=== PATIENT | female | born 1970 | race Caucasian/White ===

== ENCOUNTER 2016-04-26 08:43 | Emergency (ER) | payer OTHER ==
[~2016-04-26] VITALS: Ht 152.4 cm; Wt 78.0 kg
[~2016-04-26 08:43] MED LIST: ASPI-664 PO; ATEN50TA PO; HYDR12.58 PO; IBUP800T25 PO; LOSA50TA6 PO; SYN112 PO
[2016-04-26 08:50] VITALS: Ht 152.4 cm; Wt 78.0 kg
[2016-04-26] MEDS ORDERED: ONDANSETRON 4 MG INJ IV STA (10:12)
[2016-04-26] MEDS ORDERED: SOD CHLORIDE 0.9% 1,000 ML IV STA (10:12)
[2016-04-26] MEDS ORDERED: LIDOCAINE/MYLANTA 40 ML BTL PO STA (10:12)
[2016-04-26] MEDS ORDERED: morphine 4 MG/ML VIAL IV STA (10:12)
--- NOTE | 2016-04-26 10:31 | ERD ---
ER Documentation Chief Complaint Date/Time DATE: 04/26/16 TIME: 10:23 Chief Complaint pt bib self with c/o ap x 2 wks, and nausea, lost weight HPI This is a 45-year-old female past medical history of hypertension and hypothyroidism and appendectomy in the past presenting to the emergency department complaining of epigastric for the past 2 weeks. Patient states that the pain is worse with food. Patient admits nausea but denies any vomiting. She admits to having weight loss, she denies any constipation or diarrhea. She states her last bowel movement was yesterday. Patient has not taken any medications for this. She denies any fever ROS All systems reviewed and are negative except as per history of present illness. Medications Home Meds Active Scripts Omeprazole* (Omeprazole*) 20 Mg Capsule., 20 MG PO DAILY, #14 Prov:PRAVIN NICOLE PA-C 04/26/16 Famotidine* (Pepcid*) 20 Mg Tablet, 20 MG PO QHS for 7 Days, TAB Prov:PRAVIN NICOLE PA-C 04/26/16 Ondansetron (Ondansetron Odt) 4 Mg Tab.rapdis, 4 MG PO Q6H Y for NAUSEA AND/OR VOMITING, #14 TAB Prov:PRAVIN NICOLE PA-C 04/26/16 Ibuprofen* (Motrin*) 800 Mg Tab, 800 MG PO Q8, #30 TAB Prov:MORA FLORENCE DO 02/03/15 Reported Medications Aspirin* (Aspirin* EC) 81 Mg Tablet.dr, 81 MG PO DAILY, TAB 02/03/15 Hydrochlorothiazide* (Hydrochlorothiazide*) 12.5 Mg Tablet, 12.5 MG PO DAILY, TAB 02/03/15 Losartan Potassium* (Losartan Potassium*) 50 Mg Tablet, 50 MG PO DAILY, TAB 02/03/15 Atenolol* (Atenolol*) 50 Mg Tablet, 50 MG PO DAILY, TAB 02/03/15 Levothyroxine Sodium* (Levothyroxine Sodium*) 112 Mcg Tablet, 112 MCG PO DAILY, TAB 02/03/15 Allergies Allergies: Coded Allergies: No Known Allergy (Unverified , 02/03/15) PMhx/Soc History of Surgery: Yes (APPENDECTOMY; TONSILECTOMY; BLADDER.) Hx Neurological Disorder: No Hx Respiratory Disorders: No Hx Cardiac Disorders: No (HTN) Hx Psychiatric Problems: No Hx Miscellaneous Medical Probl: No (HYPOTHYROID) Hx Alcohol Use: No Hx Substance Use: No Hx Tobacco Use: No Physical Exam Vitals Vital Signs Date Time Temp Pulse Resp B/P Pulse Ox O2 Delivery O2 Flow Rate FiO2 04/26/16 08:50 98.3 77 18 162/70 99 Physical Exam GENERAL: well-developed/well-nourished, in no apparent distress, non-toxic appearing HENT: NC/AT, moist mucous membranes EYES: Conjunctiva normal NECK: Supple, no lymphadenopathy PULM: CTA bilaterally, no rales, rhonchi, or wheezing heard CV: Normal S1S2, RRR, good capillary refill GI: Soft, non-distended, tender to palpation epigastric region Normal bowel sounds, no masses or organomegaly felt on exam No gross peritonitis, no bruits Negative Rovsing, negative Jones, negative McBurney's point, Negative CVAT BACK: No masses EXT: No clubbing, cyanosis, or edema NEURO: Alert and Orientated SKIN: Intact, normal turgor PSYCH: Normal mood and mentation Result Diagram: 04/26/16 1032 04/26/16 1032 Results 24 hrs Laboratory Tests Test 04/26/16 10:32 Alanine Aminotransferase (ALT/SGPT) 30IU/L Albumin 4.0g/dl Albumin/Globulin Ratio 1.21 Alkaline Phosphatase 95IU/L Anion Gap 18 Aspartate Amino Transf (AST/SGOT) 25IU/L Basophils # 0.110^3/ul Basophils % 0.8% Blood Urea Nitrogen 10mg/dl Calcium Level 9.0mg/dl Carbon Dioxide Level 25mmol/L Chloride Level 106mmol/L Creatinine 0.49mg/dl Direct Bilirubin 0.00mg/dl Eosinophils # 0.110^3/ul Eosinophils % 1.3% Globulin 3.30g/dl Glucose Level 103mg/dl Hematocrit 43.7% Hemoglobin 14.7g/dl Indirect Bilirubin 0.2mg/dl Lipase 73U/L Lymphocytes # 2.510^3/ul Lymphocytes % 32.7% Mean Corpuscular Hemoglobin 31.0pg Mean Corpuscular Hemoglobin Concent 33.6g/dl Mean Corpuscular Volume 92.2fl Mean Platelet Volume 11.0fl Monocytes # 0.610^3/ul Monocytes % 8.4% Neutrophils # 4.310^3/ul Neutrophils % 56.5% Nucleated Red Blood Cells # 0.010^3/ul Nucleated Red Blood Cells % 0.0/100WBC Platelet Count 94217^3/UL Potassium Level 3.7mmol/L Red Blood Count 4.7410^6/ul Red Cell Distribution Width 13.1% Sodium Level 145mmol/L Total Bilirubin 0.2mg/dl Total Protein 7.3g/dl Urine Bilirubin NEGATIVE Urine Clarity CLEAR Urine Color LT. YELLOW Urine Glucose NEGATIVE% Urine Hemoglobin NEGATIVE Urine Ketones NEGATIVE Urine Leukocyte Esterase NEGATIVE Urine Nitrite NEGATIVE Urine Specific [place] 1.010 Urine Total Protein NEGATIVE Urine Urobilinogen 0.2 E.U./dL Urine pH 7.0 White Blood Count 7.610^3/ul Current Medications Medications (Trade) Dose Ordered Sig/Blake Route PRN Reason Start Time Stop Time Status Last Admin Dose Admin Sodium Chloride (NS) 1,000 ml @ 1,000 mls/hr Q1H STAT IV 04/26/16 10:12 04/26/16 11:11 DC 04/26/16 11:04 Morphine Sulfate (morphine) 4 mg ONCE STAT IV 04/26/16 10:12 04/26/16 10:14 DC 04/26/16 11:05 Ondansetron HCl (Zofran Inj) 4 mg ONCE STAT IV 04/26/16 10:12 04/26/16 10:14 DC 04/26/16 11:04 Miscellaneous Medication (Gi Cocktail (2)) 40 ml ONCE STAT PO 04/26/16 10:12 04/26/16 10:14 DC 04/26/16 11:05 Procedures/MDM This is a 45-year-old female past medical history of hypertension and hypothyroidism and appendectomy in the past presenting to the emergency department complaining of epigastric pain, nausea which is worse with food for the past 2 weeks. This is likely GERD, other differentials include but not limited to pancreatitis, cholecystitis, cholelithiasis, obstruction, or other cardiopulmonary conditions. Patient seemingly stable, she appears well she is afebrile and she is speaking clearly. IV access was established. Patient was given Pepcid, morphine, Zofran and a GI cocktail. I have reassessed patient and she significantly felt better. Lab work was drawn. CBC did not show any evidence of leukocytosis or anemia. CMP did not show any evidence of renal, liver, or electrolyte abnormalities. Lipase was normal. UA did not show any evidence of hemoglobin or urinary tract infection. An ultrasound of the gallbladder was done and was unremarkable for gallstones. Patient is suitable to follow-up with her primary care physician for further evaluation and management. She understands and agrees with this plan Departure Diagnosis: Primary Impression: Epigastric pain Condition: Stable PRAVIN NICOLE PA-C Apr 26, 2016 10:31
[2016-04-26 10:49] LABS: ADD UMIC NO; URINE BILIRUBIN (Dip) NEGATIVE (NEGATIVE); URINE BLOOD (Dip) NEGATIVE (NEGATIVE); URINE COLOR LT. YELLOW (YELLOW); URINE GLUCOSE (Dip) NEGATIVE (NEGATIVE); URINE KETONES (Dip) NEGATIVE (NEGATIVE); URINE LEUKOCYTE ESTERASE (Dip) NEGATIVE (NEGATIVE); URINE NITRITE (Dip) NEGATIVE (NEGATIVE); URINE TOTAL PROTEIN (Dip) NEGATIVE (NEGATIVE); URINE UROBILINOGEN (Dip) 0.2 E.U./dL (0.1-1.0)
[2016-04-26 11:01] LABS: POTASSIUM 3.7 mmol/L (3.5-5.1)
[2016-04-26 11:03] LABS: ALBUMIN/GLOBULIN RATIO 1.21; BILIRUBIN,INDIRECT 0.2 mg/dl (0-1.1); BILIRUBIN,TOTAL 0.2 mg/dl (0.2-1.3); CREATININE 0.49 mg/dl (0.44-1.00); TOTAL PROTEIN 7.3 g/dl (6.1-8.1)
[2016-04-26 11:06] LABS: BASOPHILS % 0.8 % (0.0-2.0); EOSINOPHILS % 1.3 % (0.0-7.0); HEMATOCRIT 43.7 % (37.0-47.0); HEMOGLOBIN 14.7 g/dl (12.0-16.0); LYMPHOCYTES # 2.5 10^3/ul (0.8-2.9); LYMPHOCYTES % 32.7 % (15.0-51.0); MEAN CORPUSCULAR HGB CONC 33.6 g/dl (32.0-37.0); MEAN CORPUSCULAR VOLUME 92.2 fl (82.0-101.0); MONOCYTE # 0.6 10^3/ul (0.3-0.9); MONOCYTES % 8.4 % (0.0-11.0); NEUTROPHIL # 4.3 10^3/ul (1.6-7.5); NEUTROPHILS % 56.5 % (39.0-77.0); PLATELET COUNT 283 10^3/UL (140-440); RED BLOOD COUNT 4.74 10^6/ul (4.20-5.40); RED CELL DISTRIBUTION WIDTH 13.1 % (11.5-14.5); WHITE BLOOD COUNT 7.6 10^3/ul (4.8-10.8)
[2016-04-26 11:07] LABS: BASOPHIL # 0.1 10^3/ul (0.0-0.1); EOSINOPHILS # 0.1 10^3/ul (0.0-0.5)
--- NOTE | 2016-04-26 11:08 | RADRPT ---
PROCEDURE: US Abdomen Right Upper Quadrant. CLINICAL INDICATION: Cholelithiasis TECHNIQUE: Multiple real-time longitudinal and transverse images were acquired of the patient's [facility] upper quadrant abdomen utilizing a curved array transducer. COMPARISON: None FINDINGS: Liver: The liver is mildly enlarged with the sagittal diameter right lobe measuring 16.9 cm. No foc al lesion is evident. The hepatic and portal veins are patent and there is antegrade flow of the ma in portal vein. Gallbladder: Appears unremarkable and no stones are identified. There is no pericholecystic fluid. Bile ducts: There is no significant intra or extrahepatic bile duct dilatation. No choledocholiths a re seen within the visualized portions. The common bile duct measures 3.9 mm in cross diameter. Pancreas: Appears unremarkable with no mass or inflammation evident. Right adrenal : No mass is evident. Right kidney: Normal in echotexture andl in size. The right kidney measures 12.2 cm in length. No ma ss, pathological calcification, or hydronephrosis is evident. Peritoneum: There is no free intraperitoneal fluid IMPRESSION: 1. Normal appearing gallbladder without evidence of cholelithiasis. There is no bile duct dilatatio n and the pancreas appears unremarkable. 2. Mild hepatomegaly with no focal lesion. 3. Normal-appearing right kidney. Physician Enrike Date Time Electronically viewed and signed by Physician Enrike on 04/26/2016 11:07 /
[2016-04-26] MEDS ORDERED: FAMO-18 PO (11:17)
[2016-04-26] MEDS ORDERED: ONDA4TAB14 PO (11:17)
[2016-04-26] MEDS ORDERED: OMEP20CA16 PO (11:17)
[2016-04-26 11:57] VITALS: BP 132/68; PULSE 59; RESP 18; TEMP 98
== END 2016-04-26 12:50 | disposition home or self-care (01) ==
LOC: FTE 08:43
DX: R10.13 Epigastric pain (principal); I10 Essential (primary) hypertension; E03.9 Hypothyroidism, unspecified; R11.0 Nausea; Z79.82 Long term (current) use of aspirin
CPT/HCPCS: 76705; 80053; 81003; 83690; 85025; J2270; J2405; J7030; Z7610; 36415; 96374; 96375

== ENCOUNTER 2016-07-10 14:15 | Emergency (ER) | payer OTHER ==
[~2016-07-10] VITALS: Ht 160 cm; Wt 79.5 kg
[~2016-07-10 14:15] MED LIST changes: +FAMO-18 PO; +OMEP20CA16 PO; +ONDA4TAB14 PO
[2016-07-10 14:28] VITALS: Ht 160 cm; Wt 79.5 kg
--- NOTE | 2016-07-10 15:23 | ERD ---
ER Documentation Chief Complaint Date/Time DATE: 07/10/16 TIME: 15:19 Chief Complaint urinary frequency x 1 month HPI 46-year-old female complaining urinary frequency 1 month. Patient states that she has slight dysuria, and the urine has a bad odor. Denies fever or chills. Denies flank pain. Denies hematuria. Patient stated that she was told she has prediabetes, but does not have diabetes. She also has history of hypertension, taking losartan and hydrochlorothiazide in the morning, and atenolol at night. ROS All systems reviewed and are negative except as per history of present illness. Medications Home Meds Active Scripts Omeprazole* (Omeprazole*) 20 Mg Capsule., 20 MG PO DAILY, #14 Prov:PRAVIN NICOLE PA-C 04/26/16 Famotidine* (Pepcid*) 20 Mg Tablet, 20 MG PO QHS for 7 Days, TAB Prov:PRAVIN NICOLE PA-C 04/26/16 Ondansetron (Ondansetron Odt) 4 Mg Tab.rapdis, 4 MG PO Q6H Y for NAUSEA AND/OR VOMITING, #14 TAB Prov:PRAVIN NICOLE PA-C 04/26/16 Ibuprofen* (Motrin*) 800 Mg Tab, 800 MG PO Q8, #30 TAB Prov:MORA FLORENCE DO 02/03/15 Reported Medications Aspirin* (Aspirin* EC) 81 Mg Tablet., 81 MG PO DAILY, TAB 02/03/15 Hydrochlorothiazide* (Hydrochlorothiazide*) 12.5 Mg Tablet, 12.5 MG PO DAILY, TAB 02/03/15 Losartan Potassium* (Losartan Potassium*) 50 Mg Tablet, 50 MG PO DAILY, TAB 02/03/15 Atenolol* (Atenolol*) 50 Mg Tablet, 50 MG PO DAILY, TAB 02/03/15 Levothyroxine Sodium* (Levothyroxine Sodium*) 112 Mcg Tablet, 112 MCG PO DAILY, TAB 02/03/15 Allergies Allergies: Coded Allergies: No Known Allergy (Unverified , 07/10/16) PMhx/Soc History of Surgery: Yes (APPENDECTOMY; TONSILECTOMY; BLADDER.) Hx Neurological Disorder: No Hx Respiratory Disorders: No Hx Cardiac Disorders: No (HTN) Hx Psychiatric Problems: No Hx Miscellaneous Medical Probl: No (HYPOTHYROID) Hx Alcohol Use: No Hx Substance Use: No Hx Tobacco Use: No Smoking Status: Never smoker Physical Exam Vitals Vital Signs Date Time Temp Pulse Resp B/P Pulse Ox O2 Delivery O2 Flow Rate FiO2 07/10/16 18:55 67 18 152/84 99 Room Air 07/10/16 14:28 98.5 69 18 185/87 97 Physical Exam General impression: Well-developed, well-nourished. Alert, oriented, in no acute distress Head: Normocephalic, atraumatic. ENT: External canals patent. TM'sclear. Nasal mucosa, oral mucosa and oropharynx are normal. Neck: Supple, nontender. No lymphadenopathy. No nuchal rigidity. Respiration: Normal respiratory effort. Lungs clear to auscultate bilaterally. No wheezes, rales or rhonchi. Cardiovascular: Regular rate and rhythm. No murmurs or extra heart sounds. Abdomen: Abdomen normal to inspection. Nontender. No masses or organomegaly. Bowel sounds normal. Back: Normal to inspection. No midline spine tenderness. Right CVA tenderness. Extremities: Extremities normal to inspection, nontender. ROM normal. Neuro: Mental status normal, speech normal. [employer] grossly intact. Skin: Normal turgor. No rash or lesions. Psych: Normal mood and affect. Results 24 hrs Laboratory Tests Test 07/10/16 15:26 07/10/16 16:31 Bedside Urine pH (LAB) 6.5 Bedside Urine Protein (LAB) Negative Bedside Urine Glucose (UA) Negative Bedside Urine Ketones (LAB) Negative Bedside Urine Blood Negative Bedside Urine Nitrite (LAB) Negative Bedside Urine Leukocyte Esterase (L Negative Bedside Glucose 109mg/dL Current Medications Medications (Trade) Dose Ordered Sig/Blake Route PRN Reason Start Time Stop Time Status Last Admin Dose Admin Ketorolac Tromethamine (Toradol) 60 mg ONCE STAT IM 07/10/16 17:36 07/10/16 17:37 DC 07/10/16 18:03 Amlodipine Besylate (Norvasc) 10 mg ONCE ONCE PO 07/10/16 18:00 07/10/16 18:01 DC 07/10/16 18:16 Diphenhydramine HCl (Benadryl) 50 mg ONCE ONCE PO 07/10/16 18:30 07/10/16 18:31 DC 07/10/16 18:44 Procedures/MDM Well-appearing 46-year-old female presented to ED with urinary frequency 1 month. Urine dip is negative for UTI or hematuria. Accu-Chek is 109, I doubt that she has diabetes. It is uncertain the cause of her urinary frequency, the differentials include but not limited to ureteral stricture, overactive bladder , or psychiatric causes. Patient has history of hypertension. Patient's blood pressure is elevated on arrival, 185/87. Amlodipine 10 mg p.o. given to the patient in the ED for blood pressure reduction. Patient advised to follow-up with her PCP for blood pressure monitoring and management. Patient also reports headache during her ED stay, Toradol 60 mg IM given to the patient. Patient reports improvement headache after Toradol. Patient appears well, stable for discharge and outpatient management. Medical decision making shared with patient and family. Education provided to patient and family. Patient and family expressed understanding of the plan. Medications on discharge: None. Follow-up: Primary care provider in 2-3 days or return to ED if worse. The case was reviewed and discussed with Dr. Rahman, who agrees with the plan of care including labs, treatment, and advanced imaging as appropriate. LENKA SALCIDO NP Jul 10, 2016 15:23
[2016-07-10 15:25] LABS: URINE BLOOD (Dip) POC Negative (NEGATIVE)
[2016-07-10] MEDS ORDERED: KETOROLAC 60 MG INJ IM STA (17:36)
[2016-07-10] MEDS ORDERED: AMLODIPINE 10 MG TAB PO ONE (18:00)
[2016-07-10] MEDS ORDERED: DIPHENHYDRAMINE 50 MG CAP PO ONE (18:30)
[2016-07-10 18:55] VITALS: BP 152/84; PULSE 67; RESP 18
== END 2016-07-10 18:55 | disposition home or self-care (01) ==
LOC: FTE 14:15
DX: R35.0 Frequency of micturition (principal); R30.0 Dysuria; I10 Essential (primary) hypertension; E03.9 Hypothyroidism, unspecified; Z79.82 Long term (current) use of aspirin
CPT/HCPCS: 81003; 82962; 96372; J1885; Z7502; Z7610

== ENCOUNTER 2016-08-08 10:46 | Emergency (ER) | payer OTHER ==
[~2016-08-08] VITALS: Ht 147.3 cm; Wt 77.5 kg
[2016-08-08 10:55] VITALS: Ht 147.3 cm; Wt 77.5 kg
[2016-08-08] MEDS ORDERED: ONDANSETRON (ODT) 4 MG TAB ODT STA (11:39)
[2016-08-08] MEDS ORDERED: ACETAMINOPHEN 325 MG TAB PO ONE (12:00)
[2016-08-08] MEDS ORDERED: ONDA4TAB14 PO (13:00)
[2016-08-08] MEDS ORDERED: ACET500C5 PO (13:00)
[2016-08-08] MEDS ORDERED: METOCLOPRAMIDE 10 MG INJ IM ONE (13:30)
--- NOTE | 2016-08-08 15:33 | ERD ---
ER Documentation Chief Complaint Date/Time DATE: 08/08/16 TIME: 15:30 Chief Complaint vomitting and diarrhea since am HPI 36-year-old female patient with a past medical history of hypertension presents to the ED complaining of vomiting and diarrhea that started earlier this morning. Patient states that she has had a few episodes of nonbilious nonbloody vomiting and nonmucoid nonbloody diarrhea. Reports that her mother has similar symptoms. States that she has had previous hysterectomy, appendectomy and thyroidectomy. Reports that her mother has similar symptoms. States that they both ate the same food. Denies any decreased urine output. Denies any chest pain, shortness of breath, abdominal pain, constipation, hemoptysis, hematemesis, melena. ROS All systems reviewed and are negative except as per history of present illness. Medications Home Meds Active Scripts Acetaminophen* (Tylophen*) 500 Mg Capsule, 1 CAP PO Q6H Y for PAIN AND OR ELEVATED TEMP, #20 CAP Prov:MIRNA AVALOS PA-C 08/08/16 Ondansetron (Ondansetron Odt) 4 Mg Tab.rapdis, 4 MG PO Q6H Y for NAUSEA AND/OR VOMITING, #10 TAB Prov:MIRNA AVALOS PA-C 08/08/16 Omeprazole* (Omeprazole*) 20 Mg Capsule., 20 MG PO DAILY, #14 Prov:PRAVIN NICOLE PA-C 04/26/16 Famotidine* (Pepcid*) 20 Mg Tablet, 20 MG PO QHS for 7 Days, TAB Prov:PRAVIN NICOLE PA-C 04/26/16 Ondansetron (Ondansetron Odt) 4 Mg Tab.rapdis, 4 MG PO Q6H Y for NAUSEA AND/OR VOMITING, #14 TAB Prov:PRAVIN NICOLE PA-C 04/26/16 Ibuprofen* (Motrin*) 800 Mg Tab, 800 MG PO Q8, #30 TAB Prov:MORA FLORENCE DO 02/03/15 Reported Medications Aspirin* (Aspirin* EC) 81 Mg Tablet., 81 MG PO DAILY, TAB 02/03/15 Hydrochlorothiazide* (Hydrochlorothiazide*) 12.5 Mg Tablet, 12.5 MG PO DAILY, TAB 02/03/15 Losartan Potassium* (Losartan Potassium*) 50 Mg Tablet, 50 MG PO DAILY, TAB 02/03/15 Atenolol* (Atenolol*) 50 Mg Tablet, 50 MG PO DAILY, TAB 02/03/15 Levothyroxine Sodium* (Levothyroxine Sodium*) 112 Mcg Tablet, 112 MCG PO DAILY, TAB 02/03/15 Allergies Allergies: Coded Allergies: No Known Allergy (Unverified , 07/10/16) PMhx/Soc History of Surgery: Yes (APPENDECTOMY; TONSILECTOMY; BLADDER.) Hx Neurological Disorder: No Hx Respiratory Disorders: No Hx Cardiac Disorders: No (HTN) Hx Psychiatric Problems: No Hx Miscellaneous Medical Probl: No (HYPOTHYROID) Hx Alcohol Use: No Hx Substance Use: No Hx Tobacco Use: No Smoking Status: Never smoker Physical Exam Vitals Vital Signs Date Time Temp Pulse Resp B/P Pulse Ox O2 Delivery O2 Flow Rate FiO2 08/08/16 10:55 97.6 63 20 140/65 97 Physical Exam Const: [id number], well-nourished. In no acute distress. Head: Atraumatic, normocephalic Eyes: Normal Conjunctiva without injection. No purulent discharge. ENT: Normal external ear, nose. Moist oropharynx without tonsillar exudates. Non -erythematous pharynx. Uvula midline. No drooling. No trismus. Neck: No cervical midline tenderness. Full range of motion. No meningismus. No cervical lymphadenopathy. No JVD. Resp: Clear to auscultation bilaterally. No wheezing, rhonchi, rales, or crackles. No accessory muscle use. No retractions. Cardio: Regular rate and rhythm. No murmurs, rubs or gallops. Abd: Soft, nontender, non distended. Normal bowel sounds. No palpable masses. No rebound tenderness. No guarding. Negative McBurney's point. Negative psoas sign. Negative obturator sign. Skin: No petechiae or rashes Back: No midline tenderness. No CVA tenderness. Ext: No cyanosis, or edema. Neur: Awake and alert. Normal gait. Normal coordination. Psych: Normal Mood and Affect Results 24 hrs Current Medications Medications (Trade) Dose Ordered Sig/Blake Route PRN Reason Start Time Stop Time Status Last Admin Dose Admin Ondansetron HCl (Zofran Odt) 4 mg ONCE STAT ODT 08/08/16 11:39 08/08/16 11:40 DC 08/08/16 12:02 Acetaminophen (Tylenol Tab) 650 mg ONCE ONCE PO 08/08/16 12:00 08/08/16 12:01 DC 08/08/16 12:02 Metoclopramide HCl (Reglan) 10 mg ONCE ONCE IM 08/08/16 13:30 08/08/16 13:31 DC 08/08/16 13:16 Procedures/MDM 46-year-old female patient with no significant past medical history presents to the ED complaining of vomiting and diarrhea that started earlier this morning. Patient is afebrile nontoxic appearing. Patient has normal vital signs. Patient symptoms are likely due to viral etiology since her mother also has similar symptoms and they both ate the same food. Patient was given Zofran and Tylenol here in the ED with improvement of her symptoms. Patient was noted to vomit here in the ED therefore an additional Reglan 10 mg IM was given to patient which improved patient's symptoms. Patient had a successful p.o. challenge. Patient did not vomit here in the ED. Low suspicion for gastritis, GERD, peptic ulcer disease, cholecystitis, choledocholithiasis, cholangitis, pancreatitis, appendicitis, bowel obstruction, ileus, volvulus, nephrolithiasis , pyelonephritis, hepatitis, perforated viscus, diverticulitis, abdominal hernia , acute abdomen, mesenteric ischemia or other emergent conditions. Discharge medications: Tylenol, Zofran Follow up with primary care physician in 1-2 days for referral to rack carrier. Instructed patient to return to the ED sooner for any worsening symptoms. Patient's questions were answered. Patient understood and agreed with discharge plan. Patient discharged stable. Departure Diagnosis: Primary Impression: Vomiting and diarrhea Condition: Stable Patient Instructions: Vomiting And Diarrhea, Nonspecific (Adult) Referrals: COMMUNITY CLINICS YOU HAVE RECEIVED A MEDICAL SCREENING EXAM AND THE RESULTS INDICATE THAT YOU DO NOT HAVE A CONDITION THAT REQUIRES URGENT TREATMENT IN THE EMERGENCY DEPARTMENT. FURTHER EVALUATION AND TREATMENT OF YOUR CONDITION CAN WAIT UNTIL YOU ARE SEEN IN YOUR DOCTORS OFFICE WITHIN THE NEXT 1-2 DAYS. IT IS YOUR RESPONSIBILITY TO MAKE AN APPOINTMENT FOR FOLOW-UP CARE. IF YOU HAVE A PRIMARY DOCTOR --you should call your primary doctor and schedule an appointment IF YOU DO NOT HAVE A PRIMARY DOCTOR YOU CAN CALL OUR PHYSICIAN REFERRAL HOTLINE AT IF YOU CAN NOT AFFORD TO SEE A PHYSICIAN YOU CAN CHOSE FROM THE FOLLOWING [facility] [address] [facility] [address] [facility] [address] [facility] [address] [facility] [address] [facility]. [facility] [address] [facility]. [facility] YOU HAVE RECEIVED A MEDICAL SCREENING EXAM AND THE RESULTS INDICATE THAT YOU DO NOT HAVE A CONDITION THAT REQUIRES URGENT TREATMENT IN THE EMERGENCY DEPARTMENT. FURTHER EVALUATION AND TREATMENT OF YOUR CONDITION CAN WAIT UNTIL YOU ARE SEEN IN YOUR DOCTORS OFFICE WITHIN THE NEXT 1-2 DAYS. IT IS YOUR RESPONSIBILITY TO MAKE AN APPOINTMENT FOR FOLOW-UP CARE. IF YOU HAVE A PRIMARY DOCTOR --you should call your primary doctor and schedule and appointment IF YOU DO NOT HAVE A PRIMARY DOCTOR YOU CAN CALL OUR PHYSICIAN REFERRAL HOTLINE AT . IF YOU CAN NOT AFFORD TO SEE A PHYSICIAN YOU CAN CHOSE FROM THE FOLLOWING [facility] INSTITUTIONS: [facility] [address] [place] [address] [facility] [address] [place] [address] [facility] [address] [place] [address] [facility]ENT [facility]/SPECIALTIES Additional Instructions: Llame al doctor MAANA y ata eldon CASANDRA PARA DENTRO DE 1-2 SABILLON.Dgale a la secretaria que nosotros le instruimos hacer esta casandra.Avise o llame si eric condicin se empeora antes de la casandra. Regresa aqui si peor o no mejor. MIRNA AVALOS PA-C August 08, 2016 15:33
== END 2016-08-08 15:07 | disposition left against medical advice (07) ==
LOC: FTE 10:46
DX: R11.10 Vomiting, unspecified (principal); R19.7 Diarrhea, unspecified; I10 Essential (primary) hypertension; E03.9 Hypothyroidism, unspecified; Z79.82 Long term (current) use of aspirin
CPT/HCPCS: 96372; J2765; Z7502; Z7610

== ENCOUNTER 2016-12-13 11:16 | Emergency (ER) | payer OTHER ==
[~2016-12-13] VITALS: Ht 152.4 cm; Wt 80.5 kg
[~2016-12-13 11:16] MED LIST changes: +ACET500C5 PO; -FAMO-18 PO; +FAMO-96 PO; +LEVO112T57 PO; -SYN112 PO
[2016-12-13 11:20] VITALS: Ht 152.4 cm; Wt 80.5 kg
[2016-12-13] MEDS ORDERED: HYDR-902 PO (12:20)
[2016-12-13] MEDS ORDERED: GABA600T PO (12:20)
[2016-12-13] MEDS ORDERED: PRED20TA PO (12:20)
--- NOTE | 2016-12-13 12:27 | ERD ---
ER Documentation Chief Complaint Date/Time DATE: 12/13/16 TIME: 12:24 Chief Complaint HAS R FACIAL PAIN THAT IS INTERMITTENT FOR ONE MONTH NO NEURO DEFECITS HPI This is a 46-year-old female complaining of one-month pain is above her right ear described as a sharp electric-like pain that occurs off and on about every 20 minutes. She says sometimes is more frequent than others. He says the pain is shooting and electric and will have some tingling thereafter for 5-30 minutes. No headache no numbness weakness in speech or visual changes or difficulty swallowing. The patient has seen a dentist and had 2 teeth pulled but did not get better. She is also seen ENT doctor who looked in her ear as it was fine. I told her she had TMJ. The patient says that her symptoms are worse when she tries to comb her hair or touches the area with her fingers. ROS All systems reviewed and are negative except as per history of present illness. Medications Home Meds Active Scripts Gabapentin* (Neurontin*) 600 Mg Tablet, 600 MG PO BID, #60 TAB Prov:MICHAEL MEDRANO DO 12/13/16 Hydrocodone/Acetaminophen ([place] 10-325 Tablet) 1 Each Tablet, 1 TAB PO Q6H Y for PAIN, #20 TAB Prov:MICHAEL MEDRANO DO 12/13/16 Prednisone* (Prednisone*) 20 Mg Tab, 60 MG PO DAILY for 5 Days, TAB Prov:MICHAEL MERDANO DO 12/13/16 Acetaminophen* (Tylophen*) 500 Mg Capsule, 1 CAP PO Q6H Y for PAIN AND OR ELEVATED TEMP, #20 CAP Prov:MIRNA AVALOS PA-C 08/08/16 Ondansetron (Ondansetron Odt) 4 Mg Tab.rapdis, 4 MG PO Q6H Y for NAUSEA AND/OR VOMITING, #10 TAB Prov:MIRNA AVALOS PA-C 08/08/16 Omeprazole* (Omeprazole*) 20 Mg Capsule.dr, 20 MG PO DAILY, #14 Prov:PRAVIN NICOLE PA-C 04/26/16 Famotidine* (Pepcid*) 20 Mg Tablet, 20 MG PO QHS for 7 Days, TAB Prov:PRAVIN NICOLE PA-C 04/26/16 Ondansetron (Ondansetron Odt) 4 Mg Tab.rapdis, 4 MG PO Q6H Y for NAUSEA AND/OR VOMITING, #14 TAB Prov:PRAVIN NICOLE PA-C 04/26/16 Ibuprofen* (Motrin*) 800 Mg Tab, 800 MG PO Q8, #30 TAB Prov:MORA FLORENCE DO 02/03/15 Reported Medications Aspirin* (Aspirin* EC) 81 Mg Tablet.dr, 81 MG PO DAILY, TAB 02/03/15 Hydrochlorothiazide* (Hydrochlorothiazide*) 12.5 Mg Tablet, 12.5 MG PO DAILY, TAB 02/03/15 Losartan Potassium* (Losartan Potassium*) 50 Mg Tablet, 50 MG PO DAILY, TAB 02/03/15 Atenolol* (Atenolol*) 50 Mg Tablet, 50 MG PO DAILY, TAB 02/03/15 Levothyroxine Sodium* (Levothyroxine Sodium*) 112 Mcg Tablet, 112 MCG PO DAILY, TAB 02/03/15 Allergies Allergies: Coded Allergies: No Known Allergy (Unverified , 07/10/16) PMhx/Soc History of Surgery: Yes (APPENDECTOMY; TONSILECTOMY; BLADDER.) Hx Neurological Disorder: No Hx Respiratory Disorders: No Hx Cardiac Disorders: No (HTN) Hx Psychiatric Problems: No Hx Miscellaneous Medical Probl: No (HYPOTHYROID) Hx Alcohol Use: No Hx Substance Use: No Hx Tobacco Use: No Smoking Status: Never smoker FmHx Family History: No coronary disease Physical Exam Vitals Vital Signs Date Time Temp Pulse Resp B/P Pulse Ox O2 Delivery O2 Flow Rate FiO2 12/13/16 11:20 97.6 60 18 220/111 94 Physical Exam Const: Well-developed, well-nourished Head: Atraumatic, normocephalic Eyes: Normal Conjunctiva, PERRLA, EOMI, normal sclera, no nystagmus ENT: Normal External Ears, Nose and Mouth, moist mucus membranes, pain is reproducible with touching of the scalp or slightly brushing her fingers across area above her right ear this will induce a sharp shooting pain.. Neck: Full range of motion. No meningismus, no lymphadenopathy. Resp: Clear to auscultation bilaterally, no wheezing, rhonchi, rales Cardio: Regular rate and rhythm, no murmurs, S1 S2 present Abd: Soft, non tender x 4, non distended. Normal bowel sounds, no guarding or rebound, no pulsitile abdominal masses or bruits Skin: No petechiae or rashes, no ecchymosis , no maculopapular rash Back: No midline or flank tenderness Ext: No cyanosis, or edema, FROM x 4, normal inspection, neurovascularly intact x 4 Neur: Awake and alert, STR 5/5 x 4, sensation intact x 4, no focal findings, cerebellum intact Psych: Normal Mood and Affect Results 24 hrs Current Medications Medications (Trade) Dose Ordered Sig/Blake Route PRN Reason Start Time Stop Time Status Last Admin Dose Admin Acetaminophen/ Hydrocodone Bitart ([place] (10/325)) 1 tab ONCE ONCE PO 12/13/16 12:30 12/13/16 12:31 12/13/16 12:21 Procedures/MDM Patient shows signs of trigeminal neuralgia. Follow-up with her neurologist. Discharge with prednisone, Neurontin and [place] Departure Diagnosis: Primary Impression: Trigeminal neuralgia of right side of face Condition: Stable Patient Instructions: Trigeminal Neuralgia MICHAEL MEDRANO DO Dec 13, 2016 12:27
[2016-12-13] MEDS ORDERED: HYDROCODONE/APAP (10/325) TAB PO ONE (12:30)
== END 2016-12-13 15:24 | disposition home or self-care (01) ==
LOC: E/R 11:16
DX: G50.0 Trigeminal neuralgia (principal); I10 Essential (primary) hypertension; E03.9 Hypothyroidism, unspecified; Z79.82 Long term (current) use of aspirin
CPT/HCPCS: Z7502; Z7610; 99284

== ENCOUNTER 2017-09-13 20:12 | Emergency (ER) | END 2017-09-13 20:35 | disposition left against medical advice (07) ==

== ENCOUNTER 2018-11-12 21:01 | Emergency (ER) | payer OTHER ==
[~2018-11-12] VITALS: Ht 152.4 cm; Wt 75.8 kg
[~2018-11-12 21:01] MED LIST changes: -ASPI-664 PO; +ASPI-817 PO; +GABA600T PO; +HC30CR25 TOP; +HYDR-3980 PO; -IBUP800T25 PO; +IBUP800T48 PO; +LOSA50TA14 PO; -LOSA50TA6 PO; +PRED20TA PO
[2018-11-12 21:07] VITALS: Ht 152.4 cm; Wt 75.8 kg
[2018-11-12 22:03] VITALS: BP 165/82; PULSE 88; RESP 16
== END 2018-11-12 22:09 | disposition home or self-care (01) ==
LOC: E/R 21:01
DX: T63.441A Toxic effect of venom of bees, accidental (unintentional), initial encounter (principal); I10 Essential (primary) hypertension; E03.9 Hypothyroidism, unspecified; Z79.82 Long term (current) use of aspirin
CPT/HCPCS: 99282

== ENCOUNTER 2019-01-12 10:07 | Emergency (ER) | payer OTHER ==
[~2019-01-12] VITALS: Ht 157.5 cm; Wt 74.0 kg
[~2019-01-12 10:07] MED LIST changes: +FAMO20TA18 PO; +HYG50 ORAL; +LEVO175T6 ORAL; +LOSA100T15 ORAL; +NORT10CA2 ORAL; -OMEP20CA16 PO; +OMEP20CA17 PO; +ONDA4TAB95 ORAL; +OXCA300T41 ORAL
[2019-01-12 10:14] VITALS: Ht 157.5 cm; Wt 74.0 kg
[2019-01-12] MEDS ORDERED: SOD CHLORIDE 0.9% 1,000 ML IV STA (10:53)
[2019-01-12] MEDS ORDERED: KETOROLAC 30 MG INJ IV STA (10:53)
[2019-01-12] MEDS ORDERED: DIPHENHYDRAMINE 50 MG INJ IV STA (10:53)
[2019-01-12] MEDS ORDERED: FAMOTIDINE 20 MG INJ IV STA (10:53)
[2019-01-12] MEDS ORDERED: PROCHLORPERAZINE 10 MG INJ IV STA (10:53)
[2019-01-12 13:47] VITALS: BP 155/74; PULSE 55; RESP 18
== END 2019-01-12 13:48 | disposition home or self-care (01) ==
LOC: FTE 10:07
DX: R51 Headache (principal); E03.9 Hypothyroidism, unspecified; I10 Essential (primary) hypertension
CPT/HCPCS: 36415; 70450; 80053; 81003; 81025; 83690; 85025; 96374; 96375; J0780; J1200; J1885; J7030; Z7502; Z7610